=== PATIENT | female | born 2000 | race African-American/Black ===

== ENCOUNTER 2022-06-09 06:25 | Emergency (ER) | payer MEDICAID ==
[2022-06-09] MEDS ORDERED: Acetaminophen 500 MG TAB ONE (06:49)
[2022-06-09 07:21] LABS: #Lymphocytes 0.6 thou/uL (1.20-3.40); #Monocytes 0.7 thou/uL (0.11-0.59); #Neutrophils 3.7 thou/uL (1.40-6.50); %Basophils 0.6 % (0.0-1.0); %Eosinophils 0.6 % (0.0-10.0); %Lymphocytes 12.2 % (28.0-48.0); %Monocytes 12.9 % (0.0-4.0); %Neutrophils 73.7 % (31.0-61.0); Hemoglobin 13.5 g/dL (12.0-16.0); Mean Corpuscular Hemoglobin 29.9 pg (25.0-35.0); Mean Corpuscular Volume 90.8 fL (78.0-98.0); Mean Platelet Volume 8.4 fL (7.4-10.4); Platelet Count 270 thou/uL (130-400); RBC Distribution Width 11.7 % (11.5-14.5)
[2022-06-09 07:32] LABS: BHCG - Serum Negative (NEGATIVE); Pregs Control Background? CLEAR/WHITE (CLR/WHITE); Pregs Control Bar Appear? YES (CONTROL BAR)
[2022-06-09 07:43] LABS: ALT (SGPT) 24 U/L (8-55); AST (SGOT) 23 U/L (5-34); Albumin 4.3 g/dL (3.5-5.0); Alkaline Phosphatase 75 U/L (40-100); Anion Gap 14 mmol/L (10-20); BUN (Urea Nitrogen) 9 mg/dL (7.0-18.7); Bilirubin, Total 0.5 mg/dL (0.2-1.2); Calc. Creatinine Clearance 0 mL/min (70-130); Calcium 8.8 mg/dL (7.8-10.44); Carbon Dioxide 21 mmol/L (22-29); Chloride 107 mmol/L (98-107); Estimated GFR 93; Globulin 3.2 g/dL (2.4-3.5); Glucose 124 mg/dL (70-105); Potassium 3.6 mmol/L (3.5-5.1); Protein, Total 7.5 g/dL (6.0-8.3); Sodium 138 mmol/L (136-145)
[2022-06-09 07:58] LABS: Bilirubin Negative (Negative); Blood, Urine Negative (Negative); Glucose, Urine (Dipstick) Normal (Negative); Ketone, Urine Negative (Negative); Leukocyte Negative Leu/uL (Negative); Nitrite Negative (Negative); Protein, Urine (Dipstick) 10 mg/dL (Neg-Trace); Specific Gravity, Urine 1.028 (1.002-1.036); Urobilinogen Normal mg/dL (Less than 2)
[2022-06-09 07:59] LABS: Clarity Clear (Clear)
[2022-06-09 08:02] LABS: SARS-CoV-2 NAA Rapid Test DETECTED (NotDetected)
[2022-06-09] MEDS ORDERED: Iopamidol-370 76% 500 ML 1 ML ONE (15:46)
== END 2022-06-09 09:26 | disposition home or self-care (01) ==
LOC: ERS 06:25
DX: U07.1 COVID-19 (principal)
CPT/HCPCS: 71045; 71275; 80053; 81003; 83605; 83690; 84703; 85025; 85379; 87040; 87086; 87149; 93005; 96360; 96361; Q9967